=== PATIENT | male | born 1950 | race Caucasian/White ===

== ENCOUNTER 2025-02-18 03:34 | Observation (INO) | payer MEDICARE, OTHER ==
[2025-02-18 03:56] LABS: #Basophils 0.07 10x3/uL (0.0-0.2); #Eosinophils 0.26 10x3/uL (0.0-0.5); #Monocytes 1.06 10x3/uL (0.0-1.1); #Neutrophils 6.06 10x3/uL (1.5-8.4); %Basophils 0.7 % (0.0-2.0); %Eosinophils 2.8 % (0.0-6.0); %Lymphocytes 20.2 % (18.0-47.0); %Monocytes 11.3 % (0.0-10.0); %Neutrophils 64.4 % (40.0-75.0); Hematocrit 46.8 % (38.8-50.0); Hemoglobin 16.2 g/dL (13.5-17.5); Mean Corpuscular Hemoglobin 35.2 pg (27.0-33.0); Mean Corpuscular Volume 101.7 fL (81.2-95.1); Platelet Count 191 10x3/uL (150-450); Red Blood Cell (RBC) Count 4.60 10x6/uL (4.32-5.72); White Blood Cell (WBC) Count 9.41 10x3/uL (3.5-10.5)
[2025-02-18] MEDS ORDERED: Nitroglycerin 2% Ointment 1 INCH/1 GM Packet ONE (04:03)
[2025-02-18] MEDS ORDERED: Aspirin Chewable 81 MG TAB ONE (04:04)
[2025-02-18 04:13] LABS: ALT (SGPT) Less than 7 U/L (Less than 45); AST (SGOT) 33 U/L (11-34); Albumin 4.1 g/dL (3.1-4.5); Alkaline Phosphatase 71 U/L (40-110); Anion Gap 12 mmol/L (10-20); BUN (Urea Nitrogen) 31 mg/dL (8.4-25.7); Bilirubin, Total 0.7 mg/dL (0.3-1.2); Calc. Creatinine Clearance 0 mL/min (70-130); Calcium 9.3 mg/dL (7.8-10.44); Carbon Dioxide 24 mmol/L (23-31); Chloride 106 mmol/L (98-107); Globulin 3.0 g/dL (2.4-3.5); Glucose 105 mg/dL (83-110); Potassium 4.4 mmol/L (3.5-5.1); Sodium 138 mmol/L (136-145)
[2025-02-18 05:13] LABS: Troponin I 0.014 ng/mL (< 0.028)
[2025-02-18] MEDS ORDERED: Ondansetron PF 4 MG/2 ML Vial IVP PRN (06:22)
[2025-02-18] MEDS ORDERED: Acetaminophen 325 MG TAB PO PRN (06:22)
[2025-02-18 07:32] LABS: Cardiac Risk 6.4 (Less than 4.5); Cholesterol 275.0 mg/dl (< 200 Desired); HDL Cholesterol 43.0 mg/dL (>60 Neg Risk); LDL Cholesterol, Calculated 191.0 mg/dL; Triglycerides 207.0 mg/dL (Less than 150)
[2025-02-18 08:38] VITALS: BP 116/60; TEMP 97.7
[2025-02-18] MEDS ORDERED: Aspirin Chewable 81 MG TAB PO SCH (09:00)
[2025-02-18] MEDS ORDERED: Enoxaparin 40 MG (0.4 mL) SYRINGE SC SCH (09:00)
== END 2025-02-18 08:30 | disposition left against medical advice (07) ==
LOC: CSHERS 03:34 → SUATTDRO 03:34 → CSHTELE 05:40
PROVIDERS: ADMIT Family Medicine; ATTEND Family Medicine
DX: R07.2 Precordial pain (principal); R00.1 Bradycardia, unspecified; N17.9 Acute kidney failure, unspecified; G20.A1 Parkinson's disease without dyskinesia, without mention of fluctuations; Z98.49 Cataract extraction status, unspecified eye; Z98.890 Other specified postprocedural states; Z79.899 Other long term (current) drug therapy
CPT/HCPCS: 71045; 80061; 83036; 84484; 93005; 99285; G0378; 80053; 84443; 85025